=== PATIENT | male | born 1955 | race Caucasian/White ===

== ENCOUNTER 2022-12-30 18:12 | Emergency (ER) | payer MEDICARE ==
[~2022-12-30] VITALS: Ht 180.3 cm; Wt 90.0 kg
[2022-12-30 18:44] VITALS: BP 110/76; PULSE 78; RESP 18; O2SAT 98
[2022-12-30 18:57] VITALS: TEMP 98
[2022-12-30] MEDS ORDERED: CEPH-585 PO (19:33)
[2022-12-30] MEDS ORDERED: SULF1TAB49 PO (19:33)
== END 2022-12-30 19:41 | disposition home or self-care (01) ==
LOC: ER 18:14
DX: L03.119 Cellulitis of unspecified part of limb (principal); R09.81 Nasal congestion; R51.9 Headache, unspecified
CPT/HCPCS: 99283

== ENCOUNTER 2023-01-07 13:50 | Emergency (ER) | payer MEDICARE ==
[~2023-01-07] VITALS: Ht 180.3 cm; Wt 90.9 kg
[~2023-01-07 13:50] MED LIST: CEPH-585 PO; SULF1TAB49 PO
[2023-01-07 14:33] VITALS: TEMP 98.1
[2023-01-07] MEDS ORDERED: CefTRIAXone 2gm/D5W 50ml BAG 50 ML IV ONE (16:15)
[2023-01-07] MEDS ORDERED: vancomycin/NS 1 GM ADD-VANTAGE 250 ML IV ONE (16:30)
[2023-01-07 16:46] LABS: BASOPHILS # (AUTO) 0.1 X10'3 (0-0.2); BASOPHILS % (AUTO) 0.7 % (0-1); EOSINOPHILS # (AUTO) 0.2 X10'3 (0-0.9); EOSINOPHILS % (AUTO) 1.3 % (0-6); HEMATOCRIT 54.2 % (42.0-52.0); LYMPHOCYTES % (AUTO) 15.3 % (21-51); MEAN CORPUSCULAR HEMOGLOBIN 30.6 PG (27.0-31.0); MEAN CORPUSCULAR HGB CONC 33.7 g/dL (33.0-36.5); MEAN CORPUSCULAR VOLUME 90.9 FL (78-98); MONOCYTES # (AUTO) 1.6 X10'3 (0-0.9); MONOCYTES % (AUTO) 12.1 % (2-12); NEUTROPHILS # (AUTO) 9.4 X10'3 (1.8-7.7); NEUTROPHILS % (AUTO) 70.6 % (42-75); PLATELET COUNT 422 X10'3 (140-440); RED BLOOD COUNT 5.96 X10'6 (4.70-6.10); RED CELL DISTRIBUTION WIDTH 13.9 % (11.5-14.5); WHITE BLOOD COUNT 13.2 X10'3 (4.5-11.0)
[2023-01-07 16:48] LABS: HEMOGLOBIN 18.2 g/dl (14.0-17.9)
[2023-01-07 16:59] LABS: BILIRUBIN,URINE NEGATIVE (Neg); CLARITY,URINE CLEAR (Clear); COLOR,URINE YELLOW (Yellow); GLUCOSE, URINE NEGATIVE (Neg); KETONES,URINE NEGATIVE (Neg); LEUKOCYTE ESTERASE ,URINE NEGATIVE (Neg); NITRITES, URINE NEGATIVE (Neg); OCCULT BLOOD,URINE TRACE-INTACT (Neg); PROTEIN,URINE 30 mg/dl (Neg)
[2023-01-07 17:02] LABS: UA COLLECTION TYPE NON-SPECIFIED
[2023-01-07 17:03] LABS: BACTERIA,URINE NONE SEEN /HPF (Neg); RBC,URINE 0-2 /HPF (0-2); WBC,URINE 0-4 /HPF (0-4)
[2023-01-07 17:04] LABS: MUCUS STRANDS NONE SEEN /LPF (Neg); SQUAMOUS EPITHELIAL CELL,UR FEW /LPF (FEW)
[2023-01-07 17:08] LABS: ALANINE AMINOTRANSFERASE 39 U/L (12-78); ALBUMIN 2.8 G/DL (3.4-5.0); ALBUMIN/GLOBULIN RATIO 0.6 (1.1-1.5); ALKALINE PHOSPHATASE 81 IU/L (46-116); ANION GAP 7 (8-16); ASPARTATE AMINO TRANSFERASE 20 U/L (10-37); BILIRUBIN,TOTAL 0.4 MG/DL (0.1-1.0); BLOOD UREA NITROGEN 20 MG/DL (7-18); CALCIUM 9.3 MG/DL (8.5-10.1); CHLORIDE 101 MMOL/L (99-107); CREATININE 1.66 MG/DL (0.60-1.10); GLUCOSE 92 MG/DL (70-104); LIPASE 322 U/L (73-393); POTASSIUM 4.4 MMOL/L (3.5-5.1); SODIUM 133 MMOL/L (135-145); TOTAL CARBON DIOXIDE 24.7 MMOL/L (24-32); TOTAL PROTEIN 7.3 G/DL (6.4-8.2); eCRCL 46 ML/MIN; eGFR 42 ML/MIN
[2023-01-07] MEDS ORDERED: ASPI-1071 PO (18:17)
[2023-01-07] MEDS ORDERED: ATEN-169 PO (18:17)
[2023-01-07 19:56] VITALS: BP 148/90; PULSE 71; RESP 16; O2SAT 97
--- NOTE | 2023-01-07 23:18 | NUR ---
PT ELOPED. CONFIRMATION VIA SECURITY CAMERA. REPORT MADE TO PEPITO D/T PT HAVING A IV IN PLACE. DR. GUTIÉRREZ AND PLANT CUSTODIAN NOTIFIED.
[2023-01-09] MEDS ORDERED: CEPH500C2 PO (14:48)
[2023-01-09] MEDS ORDERED: SULF1TAB45 PO (14:48)
== END 2023-01-07 23:20 | disposition left against medical advice (07) ==
LOC: ER 13:51
DX: L03.032 Cellulitis of left toe (principal); E87.1 Hypo-osmolality and hyponatremia; I73.9 Peripheral vascular disease, unspecified; N17.9 Acute kidney failure, unspecified; F17.200 Nicotine dependence, unspecified, uncomplicated; Z88.8 Allergy status to other drugs, medicaments and biological substances; Z79.82 Long term (current) use of aspirin; Z79.899 Other long term (current) drug therapy
CPT/HCPCS: 36415; 73630; 80053; 81001; 83605; 83690; 84145; 85025; 87040; 87070; 96365; 96366; 96368; 99285; J0696; J3370